=== PATIENT | male | born 1985 | race Asian ===

== ENCOUNTER 2018-03-05 17:16 | Emergency (ER) | payer OTHER ==
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
[2018-03-05 17:43] VITALS: BP 120/88; PULSE 89; TEMP 98.3; BMI 22.4
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
== END 2018-03-05 18:39 | disposition home or self-care (01) ==
LOC: JERFT 17:16
DX: S39.012A Strain of muscle, fascia and tendon of lower back, initial encounter (principal); S16.1XXA Strain of muscle, fascia and tendon at neck level, initial encounter; V49.49XA Driver injured in collision with other motor vehicles in traffic accident, initial encounter; Y92.488 Other paved roadways as the place of occurrence of the external cause; Y93.89 Activity, other specified; Y99.8 Other external cause status
CPT/HCPCS: 99281-25